=== PATIENT | female | born 1950 | race Caucasian/White ===

== ENCOUNTER 2020-07-20 12:26 | Outpatient (CLI) | payer MEDICARE, SELFPAY | END 2020-07-20 12:27 | disposition home or self-care (01) | LOC: ANHAUDIO 12:33 | PROVIDERS: PCP Physician Assistant; Visit Provider Physician Assistant | DX: H90.3 Sensorineural hearing loss, bilateral (principal) | CPT/HCPCS: 92557; 92567 ==

== ENCOUNTER 2020-09-13 17:24 | Emergency (ER) | payer MEDICARE, SELFPAY ==
[2020-09-13 17:42] VITALS: BP 174/81; PULSE 79; RESP 18; TEMP 36.7; O2SAT 98
--- NOTE | 2020-09-13 18:00 | PC.NURSE ---
Pt up to desk, reports that she feels foolish for coming in, and that she's going to go home as soon as her daughter gets here. States I don't think there's anything wrong except I'm dirty . Explained that we would be happy to see her. Also discussed signs of circulation problems, and what to watch for. Pt given education on cap refill and how to check her nailbeds. Pt also continues to deny paresthesias or temperature change to areas. Pt states will come back if worse. Amb to exit with cane.
== END 2020-09-13 18:00 | disposition left against medical advice (07) ==
LOC: ANHED 09-14 09:45
DX: Z53.21 Procedure and treatment not carried out due to patient leaving prior to being seen by health care provider (principal)
CPT/HCPCS: 99199

== ENCOUNTER 2020-09-27 10:50 | Outpatient (NON) | payer MEDICARE, SELFPAY ==
[2020-09-28 21:14] LABS: SARS-CoV-2 RNA PCR Negative
== END 2020-09-27 10:51 ==
LOC: ANHCOVIDDT 10:52
PROVIDERS: Visit Provider Physician Assistant
DX: R68.89 Other general symptoms and signs (principal); Z20.828 Contact with and (suspected) exposure to other viral communicable diseases
CPT/HCPCS: 87635; C9803; U0003

== ENCOUNTER 2021-04-12 14:53 | Emergency (ER) | payer MEDICARE, SELFPAY ==
--- NOTE | ~2021-04-12 | CT_ITS ---
EXAMINATION: CT brain wo con DATE: 04/12/2021 17:40 INDICATION: Headache due to hyperglycemia. Dizziness. Shaking. TECHNIQUE: Computed tomography (CT) of the head was performed without intravenous contrast. Sagittal and coronal reconstructions were performed. The mA was adjusted according to patient size. Iterative reconstruction technique was employed. The dose-length product was 605.33 mGy-cm. COMPARISON: head CT dated 10/25/2007 FINDINGS: Postoperative change of prior right frontal craniotomy with plate and screw fixations and aneurysm cl ipping in the region of the right middle cerebral artery. Old lacunar infarct at the head of the righ t caudate nucleus and anterior limb of the right internal capsule. A second small old lacunar infarct at the inferior right lentiform nucleus. No acute intracranial hemorrhage, acute infarction or abnor mal extra axial fluid collection. There is mild scattered white matter hypoattenuation consistent wit h chronic small vessel ischemic disease. Ventricles are normal and symmetric. No mass/mass effect. C hanges of bilateral intraocular lens replacement. The orbits, paranasal sinuses and mastoid air cells are normal. Intracranial calcified cerebral atherosclerosis is noted. IMPRESSION: 1. No acute intracranial process. 2. Small old lacunar infarcts at the right basal ganglia. 3. Postoperative change of prior right frontal craniotomy and aneurysm clipping in the right suprasel lar region likely of the right middle cerebral artery. Correlate with surgical history. 4. Mild scattered periventricular predominant white matter hypoattenuation consistent with chronic sm all vessel ischemic disease. Reviewed, dictated and finalized at location A. IMPRESSION: 1. No acute intracranial process. 2. Small old lacunar infarcts at the right basal ganglia. 3. Postoperative change of prior right frontal craniotomy and aneurysm clipping in the right suprasellar region likely of the right middle cerebral artery. Co rrelate with surgical history. 4. Mild scattered periventricular predominant white matter hypoattenuation cons istent with chronic small vessel ischemic disease.
--- NOTE | ~2021-04-12 | XR_ITS ---
EXAMINATION: XR chest 2V DATE: 04/12/2021 15:24 INDICATION: Weakness. TECHNIQUE: Frontal and lateral views of the chest were obtained. COMPARISON: Chest 2 views 10/10/15 FINDINGS: There is mild atelectasis versus scarring in the lower lung zones. No pleural effusion or p neumothorax. The heart size is normal. Median sternotomy wires are noted. Surgical clips in the right upper quadrant are likely from cholecystectomy. IMPRESSION: 1. Mild atelectasis versus scarring in the lower lung zones. Reviewed, dictated and finalized at location A.
[2021-04-12 14:55] VITALS: BP 177/53; PULSE 93; RESP 16; TEMP 36.7; O2SAT 97
--- NOTE | 2021-04-12 15:00 | ECG_ITS ---
Measurements Intervals [place] Rate: 88 P: -7 MD: 180 QRS: 53 QRSD: 91 T: 48 QT: 395 QTc: 479 Interpretive Statements SINUS RHYTHM BORDERLINE ST-T WAVE ABNORMALITY- HIGH LATERAL LEADS BASELINE ARTIFACT- I, III, AVL BORDERLINE ECG Electronically Signed On 04-12-2021 15:16:06 CDT by Gavin Ca D.O.
[2021-04-12 15:08] LABS: Glucose Point of Care > 500 mg/dl (65-105)
[2021-04-12 15:19] LABS: Basophils Percent Auto 0.3 % (0.2-1.2); Eosinophils Absolute Auto 0.3 K/mm3 (0-0.3); Eosinophils Percent Auto 4.1 % (0-4.4); Hematocrit 38.9 % (37.0-47.0); Hemoglobin 13.1 g/dL (12.0-15.0); Immature Granulocyte Absolute 0.02 K/mm3 (0.00-0.031); Immature Granulocyte Percent A 0.3 % (0-0.5); Immature Platelet Fraction Pct 4.5 % (0.9-11.2); Lymphocytes Absolute Auto 1.37 K/mm3 (0.9-3.2); Lymphocytes Percent Auto 22.4 % (18.3-44.2); Mean Corpuscular HGB Conc 33.7 g/dl (32-36); Mean Corpuscular Hemoglobin 33.8 pg (26-34); Mean Corpuscular Volume 100.3 fl (80-100); Mean Platelet Volume 11.4 fl (7.4-10.4); Monocytes Absolute Auto 0.6 K/mm3 (0.1-0.6); Monocytes Percent Auto 10.1 % (2.6-8.5); Neutrophils Absolute Auto 3.8 K/mm3 (1.3-6.7); Neutrophils Percent Auto 62.8 % (45.5-73.1); Platelet Count Result 111 k/mm3 (150-375); Red Blood Count 3.88 M/mm3 (4.2-5.4); Red Cell Distribution Width 13.9 % (11.5-14.5); White Blood Count 6.1 K/mm3 (4.5-10.0)
[2021-04-12 15:24] LABS: Lactic Acid Reflex 3.2 mmol/L (0.7-2.1)
[2021-04-12 15:30] LABS: Beta-Hydroxybutyrate/Acetoacetate 0.11 mmol/L (0.02-0.27)
[2021-04-12 15:39] LABS: Alanine Aminotransferase 26 U/L (4-35); Albumin Level 3.1 g/dL (3.5-5.1); Alkaline Phosphatase 276 U/L (38-126); Anion Gap 11 mmol/L (8-16); Aspartate Amino Transferase 57 U/L (14-36); Bilirubin,Total 2.3 mg/dL (0.2-1.3); Blood Urea Nitrogen 7 mg/dL (7-17); Calcium 8.9 mg/dL (8.4-10.2); Carbon Dioxide 20 mmol/L (22-30); Chloride 101 mmol/L (98-107); Estimated CRCL calculation 78 ml/min; Estimated Glomerular Filt Rate > 60; Glucose 584 mg/dL (65-105); Potassium 4.2 mmol/L (3.4-5.0); Sodium 132 mmol/L (137-145)
[2021-04-12 16:00] VITALS: BP 155/53; PULSE 80; RESP 18; O2SAT 98
[2021-04-12 16:07] LABS: Add Urine Microscopic? YES; Appearance Urine Clear (Clear); Bilirubin Urine Negative (Negative); Blood Urine Negative (Negative); Color Urine Yellow (Yellow); Glucose Urine UA 3+ mg/dL (Negative); Ketones Urine Negative (Negative); Leukocyte Esterase Ur Negative LEU/UL (Negative); Nitrate Urine Negative (Negative); Protein Urine Negative (Negative); RBC Urine 0-2 /hpf (0-2); Squamous Epithelial Cell Urine Few /hpf (Few); Urobilinogen Urine Negative mg/dL (<2.0)
[2021-04-12 16:22] LABS: Specific Grav Ur 1.032 (1.001-1.035)
[2021-04-12 16:43] LABS: Base Excess ABG 1.5 mEq/l (+/-2.0); Carboxyhemoglobin 0.5 % THb (0-2.0); Fractional Inspired Oxygen 21 %; Methemoglobin ABG 0.2 %THb (0-1.5); Oxygen Content ABG 18.4 %vol (16.0-22.0); Oxyhemoglobin 97.8 % THb (90.0-100.0); PCO2 ABG 24.3 mmHg (35.0-45.0); PO2 ABG 129.2 mmHg (80.0-100.0); PO2 FiO2 Ratio Arterial Blood 6.15 %; Reduced Hemoglobin 1.5 %THb (0-5.0); Total Hemoglobin 13.2 g/dL (12.0-18.0)
[2021-04-12 16:44] LABS: Device ROOM AIR; Modified Allen's Test Pass; Site Drawn LEFT RADIAL; pH ABG 7.574 (7.350-7.450)
[2021-04-12] MEDS: SODIUM CHLORIDE 0.9% IV 1,000 ML 999 ML IV CONT ×2 (16:48→18:05)
[2021-04-12 17:00] VITALS: BP 130/49; PULSE 76; RESP 12; O2SAT 97
--- NOTE | 2021-04-12 17:21 | ED.GENADULT ---
HPI - General Adult General Chief complaint: Recheck/Abnormal Lab/Rx Stated complaint: high bs Time Seen by Provider: 04/12/21 16:18 Source: patient, family and RN notes reviewed Mode of arrival: ambulatory Limitations: no limitations History of Present Illness HPI narrative: Patient is a 70-year-old female who presents to emergency department for evaluation of hyperglycemia fatigue that has been present for the last month patient notes that she has not been taking her insulin for the last month. Patient has insulin at the pharmacy waiting for her but is neglected to pick it up. Patient was seen by primary care doctor today who referred her to the emergency department. Patient presents with her daughter. Patient lives by herself in a correction [facility] apartment setting. Patient notes that she has had some intermittent vomiting. Patient notes mild headache upon arrival which she has had for 1 month. Patient denies illness or other complaints and does not appear distressed upon arrival Related Data Home Medications Medication Instructions Recorded Confirmed insulin glargine [Basaglar KwikPen SUBCUT 04/12/21 U-100 Insulin] nateglinide mg 04/12/21 sertraline mg 04/12/21 Allergies Allergy/AdvReac Type Severity Reaction Status Date / Time metformin AdvReac Unknown Diarrhea Verified 04/12/21 16:47 Review of Systems Review of Systems: All systems reviewed & are unremarkable except as noted in HPI and below PMFSH Past Medical History Medical History (Updated 04/12/21 @ 20:27 by Zechariah Valerio PA-C) Brain aneurysm Diabetes mellitus Hypertension Obesity Surgical History Surgical History (Updated 04/12/21 @ 17:23 by Zechariah Valerio PA-C) Hx of brain surgery Family History Family History Father Patient's father is Mother Family history of Alzheimer's disease Mother Family history of malignant neoplasm of cervix Father Family history of emphysema, Onset Age: 50 Social History Social History Smoking status: Never smoker Second hand tobacco smoke exposure: No Smoking end date: 11/04/07 Alcohol intake: never Gender identity (if verbalized by the patient): Female Exam Narrative: Exam Narrative: GENERAL: Well-appearing, well-nourished, and in no acute distress. HEAD: Normocephalic, atraumatic. EYES: PERRLA and EOMI. ENT: Nares clear, no rhinorrhea or epistaxis. Mucous membranes moist. CHEST: Clear to auscultation. No respiratory distress. No wheezes rales or rhonchi HEART: Regular rate and rhythm. No murmur heard. Normal peripheral pulses. ABDOMEN: Soft, nontender, nondistended EXTREMITIES: Normal range of motion. No edema. SKIN: Warm, dry, no rash. NEURO: No focal deficits. Alert and oriented x3. PSYCH: Normal mood and affect. Course Course Emergency Course: Patient was evaluated for not feeling well in the emergency department has been noncompliant with her diabetic medications was likely dehydrated has had marked improvement with her lactic going down and her glucose is well she feels much better at this time will be discharged home agreeing to be compliant with her medications and will follow with primary care ABCs and vital signs intact and stable at this time Vital Signs Vital signs: Vital Signs Temperature 98.1 F 04/12/21 14:55 Pulse Rate 93 04/12/21 14:55 Respiratory Rate 16 04/12/21 14:55 Blood Pressure 177/53 H 04/12/21 14:55 Pulse Oximetry 97 04/12/21 14:55 Temperature 98.1 F 04/12/21 14:55 Pulse Rate 88 04/12/21 19:30 Respiratory Rate 16 04/12/21 19:30 Blood Pressure 144/91 H 04/12/21 19:30 Pulse Oximetry 100 04/12/21 19:30 Medical Decision Making MDM Narrative Medical decision making narrative: Patient in the room in no distress aware of case findings treatment plan and diagnosis a
[2021-04-12] MEDS: INSULIN HUMAN REGULAR (*BKC) 100 UNITS/ML 10 UNITS SUB-Q (18:05)
[2021-04-12 18:12] LABS: Reflex Lactic Acid Yes or No Add Lactic
[2021-04-12 19:14] LABS: Glucose Point of Care 186 mg/dl (65-105)
[2021-04-12 19:30] VITALS: BP 144/91; PULSE 88; RESP 16; O2SAT 100
[2021-04-12 19:52] LABS: Lactic Acid 2.9 mmol/L (0.7-2.1)
[2021-04-12 20:40] VITALS: BP 145/71; PULSE 79; RESP 16; O2SAT 97
== END 2021-04-12 20:48 | disposition home or self-care (01) ==
PROVIDERS: Emergency Medicine Emergency Medical Services; Emergency Provider Emergency Medicine; PCP Family Medicine
DX: E11.65 Type 2 diabetes mellitus with hyperglycemia (principal); I10 Essential (primary) hypertension; E66.9 Obesity, unspecified; Z68.33 Body mass index [BMI] 33.0-33.9, adult; Z79.4 Long term (current) use of insulin; Z91.14 Patient's other noncompliance with medication regimen; R94.31 Abnormal electrocardiogram [ECG] [EKG]
CPT/HCPCS: 36415; 36600; 70450; 71046; 80053; 81001; 82010; 82375; 82805; 82948; 83050; 83605; 85025; 85055; 93005; 96360; 96361; 99284; J1815; J7030

== ENCOUNTER 2021-05-11 14:12 | Outpatient (CLI) | payer MEDICARE, SELFPAY ==
--- NOTE | 2021-05-11 | ECHO_ITS ---
Patient Info Name: Nayely Martin Age: 70 years : 1950 Gender: Female Ht: 64 in Wt: 200 lbs BSA: 2.06 m2 HR: 73 bpm BP: 144 / 67 mmHg Heart Rhythm: Sinus Rhythm Exam Date: 05/11/2021 2:37 PM Exam Location: [facility] Pulmonary Patient Status: Outpatient Admit Date: 05/11/2021 Staff Ordering Physician: Jaun, Elisa DIAZ Cold Roll Operator: CASE Attending Provider: Jaun, Elisa DIAZ Referring Physician: Jaun SAXENA; Exam Type: CA echo doppler color flow Study Info Indications R06.9 - Unspecified abnormalities of breathing Complete two-dimensional, color flow and Doppler transthoracic echocardiogram is performed. Summary 1. Complete two-dimensional, color flow and Doppler transthoracic echocardiogram is performed. 2. Normal left ventricular size with mild concentric hypertrophy. Good systolic function of all segments with an ejection fraction greater than 70% and no wall motion abnormalities. Grade 2 diastolic dysfunction is present. 3. Left atrial chamber dimension is mildly enlarged. 4. There is mild to moderate aortic valve stenosis with a peak velocity of 233 cm/s, mean gradient of 13 mmHg, and aortic valve area of 1.0 cm2. Left Ventricle Left ventricular chamber dimension is normal. Left ventricular systolic function is normal, estimated at >70%. There is mildly increased left ventricular wall thickness. Left ventricular septal wall motion is normal. The left ventricular diastolic function is grade II diastolic dysfunction. Right Ventricle Right ventricular chamber dimension is normal. Right ventricular systolic function is normal. Left Atria Left atrial chamber dimension is mildly enlarged. Right Atria Right atrial chamber dimension is normal. Aortic Valve The aortic valve is trileaflet. There is no aortic valve sclerosis. There is mild to moderate aortic valve stenosis with a peak velocity of 233 cm/s, mean gradient of 13 mmHg, and aortic valve area of 1.0 cm2. There is no aortic valve regurgitation. There is mild aortic valve calcification. Pulmonic Valve The pulmonic valve is normal. There is no pulmonic valve stenosis. There is no pulmonic regurgitation. Mitral Valve The mitral valve has normal leaflets. There is no mitral valve stenosis. There is trace mitral valve regurgitation. Tricuspid Valve The tricuspid valve leaflets are normal. There is no significant tricuspid valve stenosis. There is trace tricuspid valve regurgitation. No pulmonary hypertension, estimated pulmonary arterial systolic pressure is Empty. Pericardium/Pleural The pericardium appears normal. There is no pericardial effusion. Inferior Vena Cava Normal inferior vena cava with >50% collapse upon inspiration consistent with Empty right atrial pressure, Empty. Aorta The aortic root size at the sinus of Valsalva is normal. The prox ascending aorta size is normal. Left Ventricular Outflow Tract Name Value Normal LVOT 2D LVOT Diameter 1.6 cm LVOT Doppler LVOT Peak Gradient 5 mmHg LVOT Mean Gradient 3 mmHg LVOT VTI
== END 2021-05-11 14:13 | disposition home or self-care (01) ==
PROVIDERS: PCP Family Medicine; Visit Provider Physician Assistant
DX: R06.09 Other forms of dyspnea (principal)
CPT/HCPCS: 93306

== ENCOUNTER 2022-03-13 16:25 | Inpatient (IN) | payer MEDICARE, SELFPAY ==
--- NOTE | ~2022-03-13 | CT_ITS ---
EXAMINATION: CT abdomen pelvis w con DATE: 03/13/2022 18:54 INDICATION: ams, elevated lfts TECHNIQUE: Computed tomography (CT) of the abdomen and pelvis was performed with 100 mL Omnipaque-300 intravenous contrast. Automated exposure control and iterative reconstruction technique were employe d. The dose-length product was 1237.82 mGy-cm. COMPARISON: 07/05/2011. FINDINGS: Motion limited examination. Lower thorax: Stable right lower lobe pulmonary nodule, benign and requires no follow-up. Stable biba silar scarring and pleural blebs. Liver: Liver is small with a nodular border. Severely narrowed main and left and right portal veins, poorly visualized within the liver, without evident thrombus. Biliary/Gallbladder: Gallbladder is absent. No bile duct dilation. Spleen: Normal. Pancreas: No mass or duct dilation. Atrophy. Adrenals:No mass. Kidneys: No mass, stone, or hydronephrosis. GI tract: No small or large bowel dilation. Appendix not visualized. Mesentery/Peritoneum: No ascites, mass, or free air. Multiple upper abdominal varices. Retroperitoneum: No mass. Pelvis: Uterus absent. Mild bladder wall thickening. Soft Tissues: Soft tissues and body wall unremarkable. Bones: No acute osseous finding. IMPRESSION: Cirrhosis with portal hypertension. Poorly visualized significantly narrowed portal veins and chronic thrombosis/decreased flow. Bladder wall thickening as can be seen with cystitis in the appropriate c linical context. Reviewed, dictated and finalized at location K. IMPRESSION: Cirrhosis with portal hypertension. Poorly visualized significantly narrowed po rtal veins and chronic thrombosis/decreased flow. Bladder wall thickening as ca n be seen with cystitis in the appropriate clinical context.
--- NOTE | ~2022-03-13 | XR_ITS ---
XR chest 2V DATE: 03/13/2022 17:09 INDICATION: Weakness TECHNIQUE: AP and lateral views COMPARISON: 04/22/2021 AP and lateral chest FINDINGS: There is chronic discoid scarring at the middle lobe. The lungs are otherwise clear of inf iltrate or consolidation. No pulmonary vascular congestion or pleural effusion or pneumothorax. Normal heart size. Aortic calcification. Diffuse osteopenia. Status post cholecystectomy. IMPRESSION: Reviewed, dictated and finalized at location B. IMPRESSION:
--- NOTE | ~2022-03-13 | CT_ITS ---
EXAMINATION: CT brain wo con DATE: 03/13/2022 17:02 INDICATION: Altered mental state. Dizziness. Weakness. TECHNIQUE: Computed tomography (CT) of the head was performed without intravenous contrast. The mA wa s adjusted according to patient size. Iterative reconstruction technique was employed. Exam dose: 60 5.33 mGy-cm total exam DLP. COMPARISON: 04/22/2021 CT brain FINDINGS: Right supraclinoid aneurysm surgical clips. Right frontotemporal parietal bone flap is secu red in place by plates and screws. Chronic right f cerebrovascular accident at the right caudate nucleus and anterior limb of right inte rnal capsule and smaller right chronic basal ganglia lacunar infarct. There is nonspecific diminished attenuation cerebral white matter, likely due to chronic small vessel ischemic changes. There are prominent bilateral carotid siphon internal carotid artery calcification s. No intracranial mass lesion or hemorrhage or recent cerebrovascular accident is evident. No midline s hift or mass effect. No subdural or epidural hematoma. No fracture or bone destruction of the cranial vault. The mastoid air cells and included paranasal sinuses are normally developed and aerated.. IMPRESSION: Chronic old right cerebrovascular accidents Cerebral atherosclerosis and chronic small vessel ischemic changes of the cerebral white matter Status post right surgical aneurysm repair No acute intracranial finding or significant change since 04/22/2021 Reviewed, dictated and finalized at Location A. Reviewed, dictated and finalized at location B. IMPRESSION: Chronic old right cerebrovascular accidents Cerebral atherosclerosis and chronic small vessel ischemic changes of the cereb ral white matter Status post right surgical aneurysm repair No acute intracranial finding or significant change since 04/22/2021
--- NOTE | 2022-03-13 16:35 | ECG_ITS ---
Measurements Intervals [place] Rate: 78 P: 30 MI: 175 QRS: 66 QRSD: 88 T: 57 QT: 427 QTc: 486 Interpretive Statements SINUS RHYTHM NONSPECIFIC T-WAVE ABNORMALITY- ANTERIOR LEADS BORDERLINE ECG Electronically Signed On 03-13-2022 17:02:58 CDT by Gavin Ca D.O.
[2022-03-13 16:36] VITALS: BP 106/42; PULSE 81; RESP 20; TEMP 36.9; O2SAT 100
--- NOTE | 2022-03-13 16:46 | ED.AMS ---
HPI - Altered Mental Status General Chief Complaint: Altered Mental Status Stated Complaint: AMS Time Seen by Provider: 03/13/22 16:34 Source: patient, family and EMS History of Present Illness HPI narrative: Patient brought in for altered mental status. Patient is alert and oriented x4 however the family notes she is not acting like her usual self. She thinks her daughter is living with her has not been the case for approximately 10 years. Patient also reports multiple falls over the past several days EMS evaluated her twice today once for a left assist. Patient unable to give clear details regarding the falls. Patient reports she has pain around her bottom side where she has fallen she denies any chest pain shortness of breath fevers chills nausea vomiting headaches focal numbness or weakness. Related Data Allergies Allergy/AdvReac Type Severity Reaction Status Date / Time metformin AdvReac Unknown Diarrhea Verified 03/13/22 21:17 Review of Systems Review of Systems: CONSTITUTIONAL: Denies fever, chills, or sweats. EYES: Denies visual changes, redness, or discharge. ENT: Denies rhinorrhea, congestion, sore throat, or otalgia. CARDIOVASCULAR: Denies chest pain, palpitations, or edema. RESPIRATORY: Denies cough or dyspnea. GASTROINTESTINAL: Denies abdominal pain, nausea, vomiting, or diarrhea. GENITOURINARY: Denies dysuria or hematuria. SKIN: Denies rash or itching. MUSCULOSKELETAL: Denies back pain, joint pain, or myalgia. NEUROLOGIC: Denies headache, numbness, dizziness, or weakness. PSYCHIATRIC: Denies anxiety or depression. 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) Benign essential HTN Brain aneurysm CAD (coronary artery disease) Diabetes mellitus Hypertension MDD (major depressive disorder), recurrent episode Obesity Uncontrolled diabetes mellitus Surgical History Surgical History History of appendectomy Hx of brain surgery Hx of hysterectomy S/P CABG x 3 S/P cholecystectomy Family History Family History Father Patient's father is Mother Family history of Alzheimer's disease Mother Family history of malignant neoplasm of cervix Father Family history of emphysema, Onset Age: 50 Social History Social History Social History: Smoking packs per day: 0.5 Smoking cigarettes per day: 10.0 Years smoked: 30 Smoking pack-years: 15.00 Smoking status: Former smoker Tobacco type: cigarettes Second hand tobacco smoke exposure: No Smoking end date: 11/04/07 Alcohol intake: never Substance use: never Substance use type: does not use Gender identity (if verbalized by the patient): Female Sexual Orientation (if Verbalized by the Patient): Straight or Heterosexual Spiritual care concerns: No Exam Narrative: GENERAL: Well-appearing, well-nourished, and in no acute distress. HEAD: Normocephalic, atraumatic. EYES: PERRLA and EOMI. ENT: Nares clear, no rhinorrhea or epistaxis. Mucous membranes moist. NECK: Supple. No masses. No JVD CHEST: Clear to auscultation. No respiratory distress. No wheezes rales or rhonchi HEART: Regular rate and rhythm. No murmur heard. Normal peripheral pulses. ABDOMEN: Soft, nontender, nondistended, normal active bowel sounds. EXTREMITIES: Normal range of motion. No edema. SKIN: Warm, dry, no rash. NEURO: 5 out of 5 strength in all extremities sensation intact to light touch in all extremities cranial nerves II through XII are intact. Alert and oriented x3. PSYCH: Normal mood and affect. Course Reevaluation(s) Reevaluation #1: Family patient updated on res
[2022-03-13] MEDS: SODIUM CHLORIDE 0.9% IV 1,000 ML 999 ML IV CONT (16:52)
--- NOTE | 2022-03-13 16:54 | PC.NURSE ---
Pt to XRAY via stretcher at this time, fluids infusing.
[2022-03-13 17:02] LABS: Basophils Percent Auto 0.2 % (0.2-1.2); Eosinophils Percent Auto 0.2 % (0-4.4); Hematocrit 36.8 % (37.0-47.0); Immature Granulocyte Absolute 0.06 K/mm3 (0.00-0.031); Immature Granulocyte Percent A 0.5 % (0-0.5); Immature Platelet Fraction Pct 4.8 % (0.9-11.2); Lymphocytes Absolute Auto 0.75 K/mm3 (0.9-3.2); Lymphocytes Percent Auto 5.7 % (18.3-44.2); Mean Corpuscular HGB Conc 32.6 g/dl (32-36); Mean Corpuscular Hemoglobin 33.1 pg (26-34); Mean Corpuscular Volume 101.4 fl (80-100); Mean Platelet Volume 11.3 fl (7.4-10.4); Monocytes Absolute Auto 0.9 K/mm3 (0.1-0.6); Monocytes Percent Auto 6.7 % (2.6-8.5); Neutrophils Absolute Auto 11.3 K/mm3 (1.3-6.7); Neutrophils Percent Auto 86.7 % (45.5-73.1); Platelet Count Result 85 k/mm3 (150-375); Red Blood Count 3.63 M/mm3 (4.2-5.4); Red Cell Distribution Width 14.3 % (11.5-14.5); White Blood Count 13.1 K/mm3 (4.5-10.0)
[2022-03-13 17:09] LABS: Glucose Point of Care 134 mg/dl (65-105)
[2022-03-13 17:11] LABS: INR 1.7; Partial Thromboplastin Time 35.1 SECONDS (22.3-36.8)
[2022-03-13 17:14] LABS: Appearance Urine Clear (Clear); Bilirubin Urine 1+ (Negative); Blood Urine 3+ (Negative); Color Urine Yellow (Yellow); Glucose Urine UA Negative (Negative); Ketones Urine Trace mg/dL (Negative); Leukocyte Esterase Ur Negative LEU/UL (Negative); Nitrate Urine Negative (Negative); Protein Urine 1+ mg/dL (Negative); Specific Grav Ur 1.025 (1.001-1.035); Urobilinogen Urine 0.2 mg/dL (<2.0); pH Urine 5.5 (5.0-9.0)
[2022-03-13 17:15] LABS: Lactic Acid Reflex 2.8 mmol/L (0.7-2.0)
[2022-03-13 17:18] LABS: Albumin Level 2.7 g/dL (3.5-5.1); Alkaline Phosphatase 153 U/L (38-126); Anion Gap 6 mmol/L (8-16); Bilirubin,Total 3.5 mg/dL (0.2-1.3); Blood Urea Nitrogen 21 mg/dL (7-17); Calcium 8.2 mg/dL (8.4-10.2); Carbon Dioxide 24 mmol/L (22-30); Chloride 108 mmol/L (98-107); Estimated CRCL calculation 59 ml/min; Estimated Glomerular Filt Rate > 60; Glucose 125 mg/dL (65-110); Potassium 4.7 mmol/L (3.4-5.0); Sodium 138 mmol/L (137-145)
[2022-03-13 17:26] LABS: Alanine Aminotransferase 135 U/L (6-35); Aspartate Amino Transferase 682 U/L (14-36)
[2022-03-13 17:33] LABS: Add Urine Microscopic? YES
[2022-03-13 17:35] LABS: Mucus Urine Rare /lpf; RBC Urine 0-2 /hpf (0-2); Squamous Epithelial Cell Urine Rare /hpf (Few); WBC Urine 0-3 /hpf
[2022-03-13 17:41] VITALS: BP 97/59; PULSE 86; RESP 15; O2SAT 96
[2022-03-13 18:34] LABS: SARS-CoV-2 RNA PCR Negative
[2022-03-13 19:08] VITALS: BP 80/49; PULSE 90; RESP 18; O2SAT 98
--- NOTE | 2022-03-13 19:08 | PC.NURSE ---
This RN started NS infusing at 999MLS/HR due to hypotensive. Pt moved to room 11. Pt on tele monitor.
[2022-03-13] MEDS: SODIUM CHLORIDE 0.9% IV 1,000 ML 125 ML IV CONT ×2 (19:09→20:25)
[2022-03-13 19:13] LABS: Ammonia 15 umol/L (9-30); Ethanol < 10 mg/dL (<10)
[2022-03-13 19:19] LABS: Beta-Hydroxybutyrate/Acetoacetate 0.82 mmol/L (0.02-0.27)
[2022-03-13 19:21] VITALS: BP 93/51; PULSE 90; RESP 15; O2SAT 100
--- NOTE | 2022-03-13 19:21 | PC.NURSE ---
bedside report given to Hiwot RN at this time. Pt is alert on stretcher, family at bedside, discussed POC.
--- NOTE | 2022-03-13 19:26 | PC.NURSE ---
ROBERTOR from Rosemarie FERNANDEZ.
[2022-03-13 19:46] VITALS: BP 112/51; PULSE 88; RESP 16; O2SAT 97
[2022-03-13 19:58] LABS: Reflex Lactic Acid Yes or No Add Lactic
[2022-03-13 20:24] LABS: Creatine Kinase > 16000 U/L (30-135)
[2022-03-13 20:40] VITALS: BP 136/45; PULSE 89; RESP 20; TEMP 36; O2SAT 99; BMI 34.9
--- NOTE | 2022-03-13 20:52 | ADMGEN ---
This patient, Nayely Vega, was admitted to [facility] Surg Room 323-02. Patient/family oriented to hospital policies and general routines including ID bracelet, bed and alarms, visiting hours, pain management, procedures, bathroom and other care routines, personal items, smoking policy, room service/diet, and visiting hours. Information on how to activate the Rapid Response Team has been discussed. Patient/Family are encouraged to report perceived risks to care and to ask questions if they do not understand what they are told or what they should do.
[2022-03-13 20:57] LABS: Lactic Acid 1.9 mmol/L (0.7-2.0)
--- NOTE | 2022-03-13 21:02 | PM.IMHP ---
H&P: HPI History of Present Illness Date/Time: Patient was placed observation status for expected length of stay less than 23 hours for management, will plan to re-evaluate tomorrow for improvement. 03/13/22 21:02 Chief Complaint: Altered mental status Narrative: Ms. Vega is a 71-year-old female who presented to the emergency room after being found on the floor on the floor of her bathroom today. Patient's daughter is at bedside states last time anybody had spoke with the patient was on Saturday when she had fallen in the lobby. Patient states they attempted to check on her yesterday but they did not get an answer and today she was found on the bathroom floor. Patient states she does not recall exactly when she did fall. Patient denies any lightheadedness, dizziness, syncopal, or near syncopal episodes. Patient states she does not even recall falling in the bathroom. At this time patient is alert oriented to person and place and is confused to time. Upon evaluation in emergency room patient was noted to have significantly elevated liver enzymes. Patient's daughter states that they have been elevated in the past she had seen hepatology, but no etiology was found. Patient's daughter states that these liver enzymes the highest they have ever been. Patient does have a known history of coronary artery disease status post coronary bypass grafting, cerebral aneurysm status post clipping, diabetes mellitus, hypertension, depression, transaminitis and CVA. Review of Systems Review of Systems: A 12 point review of systems was completed patient all pertinent positive and negative per HPI the remainder are unremarkable. 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) Benign essential HTN Brain aneurysm CAD (coronary artery disease) Diabetes mellitus Hypertension MDD (major depressive disorder), recurrent episode Obesity Uncontrolled diabetes mellitus Surgical History Surgical History History of appendectomy Hx of brain surgery Hx of hysterectomy S/P CABG x 3 S/P cholecystectomy Family History Family History Father Patient's father is Mother Family history of Alzheimer's disease Mother Family history of malignant neoplasm of cervix Father Family history of emphysema, Onset Age: 50 Social History Social History Social History: Smoking status: Former smoker Tobacco type: cigarettes Second hand tobacco smoke exposure: No Smoking end date: 11/04/07 Alcohol intake: never Substance use: never Substance use type: does not use Gender identity (if verbalized by the patient): Female Sexual Orientation (if Verbalized by the Patient): Straight or Heterosexual Meds Home Medications and Allergies Home Medications Medication Instructions Recorded Confirmed Type atorvastatin 10 mg tablet 10 mg PO DAILY #90 tablet 01/05/22 02/27/22 Rx lisinopril 5 mg tablet 5 mg PO BID #180 tablet 01/05/22 02/27/22 Rx sertraline 50 mg tablet 50 mg PO DAILY #90 tablet 01/05/22 02/27/22 Rx insulin syr/ndl U100 half umu 0.3 #100 ea 01/12/22 02/27/22 Rx mL 31 gauge x 16 insulin syringe-needle U-100 1 mL #100 ea 01/12/22 02/27/22 Rx 31 gauge x 5/16 insulin aspart U-100 100 unit/mL See Rx Instructions .ROUTE 02/26/22 02/27/22 Rx (3 mL) subcutaneous pen .COMPLEX #15 ml amoxicillin 875 mg-potassium 1 tablet PO BID #20 tablet 02/27/22 02/27/22 Rx clavulanate 125 mg tablet Allergies Allergy/AdvReac Type Severity Reaction Status Date / Time metformin AdvReac Unknown Diarrhea Verified 03/13/22 16:42 Vital Signs Vital Signs - 24 hr 03/13/22 16:36 03/13/22 17:41 03/13/22 19:08 Temperature
[2022-03-13 23:02] LABS: Glucose Point of Care 107 mg/dl (65-105)
[2022-03-14 05:53] VITALS: BP 110/46; PULSE 71; RESP 16; TEMP 36.6; O2SAT 95
[2022-03-14] MEDS: SODIUM CHLORIDE 0.9% IV 1,000 ML 125 ML IV CONT ×2 (06:18→16:52)
[2022-03-14 06:37] LABS: Basophils Percent Auto 0.3 % (0.2-1.2); Eosinophils Absolute Auto 0.3 K/mm3 (0-0.3); Hemoglobin 9.8 g/dL (12.0-15.0); Immature Granulocyte Absolute 0.05 K/mm3 (0.00-0.031); Immature Granulocyte Percent A 0.4 % (0-0.5); Lymphocytes Percent Auto 11.1 % (18.3-44.2); Mean Corpuscular HGB Conc 31.6 g/dl (32-36); Mean Corpuscular Volume 104.4 fl (80-100); Mean Platelet Volume 11.8 fl (7.4-10.4); Monocytes Absolute Auto 1.3 K/mm3 (0.1-0.6); Neutrophils Absolute Auto 9.6 K/mm3 (1.3-6.7); Neutrophils Percent Auto 76.2 % (45.5-73.1); Platelet Count Result 74 k/mm3 (150-375); Red Blood Count 2.97 M/mm3 (4.2-5.4); Red Cell Distribution Width 14.2 % (11.5-14.5); White Blood Count 12.6 K/mm3 (4.5-10.0)
--- NOTE | 2022-03-14 08:09 | WPDGICN ---
Assessment and Plan Assessment and plan (1) Elevated liver enzymes: Code(s): R74.8 - Abnormal levels of other serum enzymes Status: Acute Assessment and Plan: Patient noted to have elevated LFTs. Review of old records reveal these have been elevated for some time. The chronic elevation is somewhat uncertain. Currently admitted with rhabdomyolysis electrolyte disturbance and renal insufficiency. Elevated LFTs may be on this basis acutely. Plan to obtain imaging of the liver via CT scan if not already accomplished. Hepatitis serologies in lab workup for additional evaluation of ongoing LFT elevation is advised. Patient is noted have a macrocytic anemia raising the question possible underlying scar tissue within the liver such as early cirrhosis. We will follow with you as lab work is obtained. (2) Rhabdomyolysis: Code(s): M62.82 - Rhabdomyolysis Status: Acute Assessment and Plan: Patient with electrolyte disturbance and renal insufficiency suggesting rhabdomyolysis. Renal service has been consulted. (3) Brain aneurysm: Code(s): I67.1 - Cerebral aneurysm, nonruptured Status: Acute (4) Cognitive impairment: Code(s): R41.89 - Other symptoms and signs involving cognitive functions and awareness Status: Acute (5) Hx of subarachnoid hemorrhage: Code(s): Z86.79 - Personal history of other diseases of the circulatory system Status: Acute GI Consult Note Consult date/time: 03/14/22 08:09 HPI: Nayely Vega is a 71 year old female I am asked to see for elevated LFTs. Patient has been brought to the emergency room last evening because of change in mental status. She is unable to give any additional history. States she had elevated LFTs more than 10 years ago was evaluated by [facility] elsewhere and workup apparently was negative. She it was she has been followed conservatively since that time. Patient has a history of a brain aneurysm with subsequent brain surgery and clipping of the aneurysm. Outpatient Clinic notes reflect that she has memory loss and cognitive to have deficit on this basis. This apparently is chronic and ongoing. It is on certain how much decline was noted when she was brought to the emergency room. Patient herself currently states that she has no history of exposure to hepatitis no transfusions or tattoos or IV drug abuse history. 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) Benign essential HTN Brain aneurysm CAD (coronary artery disease) Diabetes mellitus Hypertension MDD (major depressive disorder), recurrent episode Obesity Uncontrolled diabetes mellitus Surgical History Surgical History History of appendectomy Hx of brain surgery Hx of hysterectomy S/P CABG x 3 S/P cholecystectomy Family History Family History Father Patient's father is Mother Family history of Alzheimer's disease Mother Family history of malignant neoplasm of cervix Father Family history of emphysema, Onset Age: 50 Social History Social History Social History: Smoking packs per day: 0.5 Smoking cigarettes per day: 10.0 Years smoked: 30 Smoking pack-years: 15.00 Smoking status: Former smoker Tobacco type: cigarettes Second hand tobacco smoke exposure: No Smoking end date: 11/04/07 Alcohol intake: never Substance use: never Substance use type: does not use Gender identity (if verbalized by the patient): Female Sexual Orientation (if Verbalized by the Patient): Straight or Heter
[2022-03-14 08:14] LABS: Glucose Point of Care 83 mg/dl (65-105)
[2022-03-14 08:55] LABS: Bilirubin Indirect 2.4 mg/dL (0-1.1); Bilirubin,Total 3.1 mg/dL (0.2-1.3)
[2022-03-14 09:02] LABS: Creatine Kinase 13967 U/L (30-135)
[2022-03-14 12:02] LABS: Glucose Point of Care 86 mg/dl (65-105)
[2022-03-14 14:00] VITALS: BP 115/54; PULSE 83; RESP 16; TEMP 36.7; O2SAT 100
[2022-03-14 14:38] VITALS: BMI 34.9
[2022-03-14 16:34] LABS: Glucose Point of Care 116 mg/dl (65-105)
--- NOTE | 2022-03-14 16:40 | PM.IMPN ---
Progress Note: A&P Assessment and Plan (1) Acute alteration in mental status: Code(s): R41.82 - Altered mental status, unspecified Status: Acute Assessment and Plan: Patient has no neurological deficits at this time. Her ammonia level is within normal limits. Unsure if altered mental status is secondary to fall and rhabdomyolysis. At this point time will live early hydrate patient and monitor CK as well as renal function very closely. 03/14/2022 interval history: patient is 71-year-old female a resident of nursing patient apparently fell in the bathroom and was found, patient still quite confused unable to provide detailed review of symptom, her daughter is present in the room suspect patient was in the floor for overnight possibly longer, also patient fell while sitting on walker, patient is found to have significantly elevated liver function CT scan of the abdomen showed Cirrhosis with portal hypertension. Poorly visualized significantly narrowed portal veins and chronic thrombosis/decreased flow. Bladder wall thickening as can be seen with cystitis in the appropriate clinical context. patient also had macrocytic anemia suggesting liver cirrhosis etiology uncertain will do acute hepatitis panel to rule out infection and patient is seen GI and further recommendation to follow up. patient is also found to have rhabdomyolysis upon arrival CK level were elevated >16,000 most likely secondary to fall and being on the floor for overnight patient is being gently hydrated and CK levels are trending down will continue to monitor once clinically stable will have a PT OT evaluate the patient. (2) Elevated liver enzymes: Code(s): R74.8 - Abnormal levels of other serum enzymes Status: Acute Assessment and Plan: Patient has a history of elevated liver enzymes and did see hepatology in the past. Patient's daughters states that no etiology was found for her elevated liver enzymes. Gastroenterology has been consult and do appreciate further recommendations. Will avoid any hepatotoxic agents such as Tylenol. (3) Rhabdomyolysis: Code(s): M62.82 - Rhabdomyolysis Status: Acute Assessment and Plan: Patient is unsure when she fell, but it does appear since her CKs greater than 16,000 that was well over 24 hours ago. At this point time will live early hydrate patient and monitor kidney function as well as CK closely. Subjective Date/time seen: 03/14/22 16:40 Chief Complaint: Altered mental status Narrative: Ms. Vega is a 71-year-old female who presented to the emergency room after being found on the floor on the floor of her bathroom today. Patient's daughter is at bedside states last time anybody had spoke with the patient was on Saturday when she had fallen in the lobby. Patient states they attempted to check on her yesterday but they did not get an answer and today she was found on the bathroom floor. Patient states she does not recall exactly when she did fall. Patient denies any lightheadedness, dizziness, syncopal, or near syncopal episodes. Patient states she does not even recall falling in the bathroom. At this time patient is alert oriented to person and place and is confused to time. Upon evaluation in emergency room patient was noted to have significantly elevated liver enzymes. Patient's daughter states that they have been elevated in the past she had seen hepatology, but no etiology was found. Patient's daughter states that these liver enzymes the highest they have ever been. Patient does have a known history of coronary artery disease status post coronary bypass grafting, cerebral aneurysm status post clipping, diabetes mellitus, hypertension, depression, transaminitis and CVA. 03/14/2022 interval history: patient is 71-year-old female a resident of nursing patient apparently fell in the bathroom and was found, patient still quite confused unable to provide detailed review of symptom, her daughter is
[2022-03-14 19:49] LABS: Hepatitis B Surface Antigen Negative (Negative)
[2022-03-14 19:55] LABS: HAV RESULT Negative (Negative); Hepatitis B Core IgM Result Negative (Negative)
[2022-03-14 20:07] LABS: Hepatitis C Virus Antibody Negative (Negative)
[2022-03-14] MEDS: TOLNAFTATE 1% POWDER 45 GM BTL 1 APPLIC TOPICAL (20:34)
[2022-03-14 21:52] LABS: Glucose Point of Care 125 mg/dl (65-105)
[2022-03-14 22:00] VITALS: BP 118/40; PULSE 82; RESP 18; TEMP 36.2; O2SAT 97
[2022-03-15] MEDS: SODIUM CHLORIDE 0.9% IV 1,000 ML 125 ML IV CONT ×3 (05:26→21:45)
[2022-03-15 06:00] VITALS: BP 111/39; PULSE 73; RESP 16; TEMP 36.1; O2SAT 97
[2022-03-15 08:00] VITALS: PULSE 73; RESP 16; O2SAT 97
[2022-03-15 08:22] VITALS: O2SAT 97
[2022-03-15] MEDS: ENOXAPARIN 40 MG/0.4 ML SYRINGE SUB-Q (08:26)
[2022-03-15] MEDS: TOLNAFTATE 1% POWDER 45 GM BTL 1 APPLIC TOPICAL ×2 (08:26→21:44)
[2022-03-15 08:27] LABS: Glucose Point of Care 93 mg/dl (65-105)
[2022-03-15 08:55] LABS: Alanine Aminotransferase 160 U/L (6-35); Albumin Level 2.1 g/dL (3.5-5.1); Alkaline Phosphatase 124 U/L (38-126); Anion Gap 4 mmol/L (8-16); Aspartate Amino Transferase 631 U/L (14-36); Bilirubin,Total 2.1 mg/dL (0.2-1.3); Blood Urea Nitrogen 29 mg/dL (7-17); Calcium 7.2 mg/dL (8.4-10.2); Carbon Dioxide 19 mmol/L (22-30); Chloride 111 mmol/L (98-107); Estimated CRCL calculation 55 ml/min; Estimated Glomerular Filt Rate > 60; Glucose 94 mg/dL (65-110); Potassium 4.2 mmol/L (3.4-5.0); Sodium 134 mmol/L (137-145)
[2022-03-15 09:11] LABS: Creatine Kinase 7535 U/L (30-135)
[2022-03-15 12:01] LABS: Glucose Point of Care 150 mg/dl (65-105)
--- NOTE | 2022-03-15 12:54 | WPDGIPROGNO ---
Progress Note: A&P Assessment and Plan (1) Rhabdomyolysis: Code(s): M62.82 - Rhabdomyolysis Status: Acute Assessment and Plan: Patient with markedly elevated CK levels. She likely has had rhabdomyolysis. Plan to continue IV fluids. Monitor electrolytes. Elevated LFTs is most likely on this basis. (2) Elevated liver enzymes: Code(s): R74.8 - Abnormal levels of other serum enzymes Status: Acute Assessment and Plan: Patient has marked elevation of LFTs likely related to rhabdomyolysis. She does have a has a history of mild elevation of her transaminases. Laboratory studies are in progress to search for any underlying condition. Suspect she may have CORONEL. Acute elevation of LFTs hopefully will improve with rehydration , because of her recent rhabdomyolysis. (3) Acute alteration in mental status: Code(s): R41.82 - Altered mental status, unspecified Status: Acute (4) Brain aneurysm: Code(s): I67.1 - Cerebral aneurysm, nonruptured Status: Acute Assessment and Plan: Patient has a baseline cognitive impairment related to previous brain surgery and cerebral aneurysm repair. (5) Cognitive impairment: Code(s): R41.89 - Other symptoms and signs involving cognitive functions and awareness Status: Acute Subjective Date/time seen: 03/15/22 12:54 Patient still somewhat confused today but appears more alert. Reports lying on ground quite a while after fall. Now felt to have had rhabdomyolysis. Review of Systems Review of Systems: All systems reviewed & are unremarkable except as noted in HPI and below Exam Narrative: Physical exam reveals her to be more alert. Still difficult historian. Lungs are clear. Heart without murmur. Abdomen bowel sounds present soft with no organomegaly. Objective Data Vital Signs Vital Signs: Vital Signs - 24 hr 03/14/22 14:00 03/14/22 22:00 03/15/22 06:00 Temperature 98.0 F 97.1 F L 96.9 F L Pulse Rate 83 82 73 Respiratory Rate 16 18 16 Blood Pressure 115/54 L 118/40 L 111/39 L Pulse Oximetry 100 97 97 03/15/22 08:00 03/15/22 08:22 Temperature Pulse Rate 73 Respiratory Rate 16 Blood Pressure Pulse Oximetry 97 97 Intake/Output Intake/Output: Intake & Output 03/12/22 03/13/22 03/14/22 03/15/22 23:59 23:59 23:59 23:59 Intake Total 1999 4190 1240 Balance 1999 4190 1240 Meds/Results Medications: Active Medications Generic Name Dose Route Start Last Admin Trade Name Freq PRN Reason Stop Dose Admin Acetaminophen 650 mg 03/14/22 18:27 Acetaminophen 325 Mg Tablet PO Q6H PRN Mild Pain (1-3) or Fever Dextrose 12.5 gm 03/13/22 20:59 Dextrose 50% 25 Gm/50 Ml Syringe IV PUSH PRN PRN Hypoglycemia Protocol Enoxaparin Sodium 40 mg 03/14/22 09:00 03/15/22 08:26 Enoxaparin 40 Mg/0.4 Ml Syringe SUB-Q 40 mg DAILY TORIBIO Administration Glucagon 1 mg 03/13/22 20:59 Glucagon For Inj 1 Mg Vial IM PRN PRN Hypoglycemia Protocol Glucose 15 gm 03/13/22 20:59 Glucose Oral Gel 15 Gm Of Glucse In 37.5 Gm Tube PO PRN PRN Hypoglycemia Protocol Sodium Chloride 1,000 mls @ 125 mls/hr 03/13/22 18:50 03/15/22 05:26 Normal Saline Iv IV CONT 125 mls/hr .Q8H TORIBIO Administration Dextrose 1,000 mls @ 100 mls/hr 03/13/22 20:59 Dextrose 5% 1,000 Ml IVPB PRN PRN Hypoglycemia Protocol Tolnaftate 1 applic 03/14/22 21:00 03/15/22 08:26 Tolnaftate 1% Powder 45 Gm Btl TOPICAL 1 applic Q12HR TORIBIO Administration Radiology Results: ITS Impressions Head CT 03/13/22 17:03 IMPRESSION: Chronic old right cerebrovascular accidents Cerebral atherosclerosis and chronic small vessel ischemic changes of the cerebral white matter Status post right surgical aneurysm repair No acute intracranial finding or significant change since 04/22/2021 Chest X-Ray 03/13/22 17:10 IMPRESSION
--- NOTE | 2022-03-15 13:06 | PC.NURSE ---
daughter reports pt having difficulty swallowing, inquiring about bedside swallow study or speech evaluation.
[2022-03-15 14:00] VITALS: BP 129/52; PULSE 76; RESP 18; TEMP 36.6; O2SAT 99
--- NOTE | 2022-03-15 14:06 | PC.NURSE ---
daughter wanted to reclarify home medication, SSI novolog high dose, lantus daughter unsure of units, lipitor 10 mg hs, zoloft 50 mg daily , and lisinopril 5 mg daily, updated home medication list per daughter request.
--- NOTE | 2022-03-15 14:09 | PC.NURSE ---
daughter reported pt has difficulty swallowing, bedside speech swallowing eval and tx ordered.
--- NOTE | 2022-03-15 14:42 | PM.IMPN ---
Progress Note: A&P Assessment and Plan (1) Acute alteration in mental status: Code(s): R41.82 - Altered mental status, unspecified Status: Acute Assessment and Plan: Patient has no neurological deficits at this time. Her ammonia level is within normal limits. Unsure if altered mental status is secondary to fall and rhabdomyolysis. At this point time will live early hydrate patient and monitor CK as well as renal function very closely. 03/14/2022 interval history: patient is 71-year-old female a resident of nursing patient apparently fell in the bathroom and was found, patient still quite confused unable to provide detailed review of symptom, her daughter is present in the room suspect patient was in the floor for overnight possibly longer, also patient fell while sitting on walker, patient is found to have significantly elevated liver function CT scan of the abdomen showed Cirrhosis with portal hypertension. Poorly visualized significantly narrowed portal veins and chronic thrombosis/decreased flow. Bladder wall thickening as can be seen with cystitis in the appropriate clinical context. patient also had macrocytic anemia suggesting liver cirrhosis etiology uncertain will do acute hepatitis panel to rule out infection and patient is seen GI and further recommendation to follow up. patient is also found to have rhabdomyolysis upon arrival CK level were elevated >16,000 most likely secondary to fall and being on the floor for overnight patient is being gently hydrated and CK levels are trending down will continue to monitor once clinically stable will have a PT OT evaluate the patient. 03/15/2022 interval history: patient is 71-year-old female a resident of long term patient apparently fell in the bathroom and was found, patient was quite confused was unable to provide detailed review of symptom, her daughter was present in the room suspect patient was in the floor for overnight possibly longer, also patient fell while sitting on walker, patient was found to have significantly elevated liver function, CT scan of the abdomen showed Cirrhosis with portal hypertension. Poorly visualized significantly narrowed portal veins and chronic thrombosis/decreased flow. Bladder wall thickening as can be seen with cystitis in the appropriate clinical context. patient also had macrocytic anemia suggesting liver cirrhosis etiology uncertain will do acute hepatitis panel to rule out infection which is negative for Hepatitis B and C and patient is seen GI suspect most likely symptoms are stemming from rhabdomyolysis patient is being gently hydrated, and further recommendation to follow up. patient is also found to have rhabdomyolysis upon arrival CK level were elevated >16,000 most likely secondary to fall and being on the floor for overnight patient is being gently hydrated and CK levels are trending down 7535, patient daughter is present in the room and give her updates, will continue to monitor, will have a PT OT evaluate the patien, patient will benefit going to acute rehab upon discharge. . (2) Elevated liver enzymes: Code(s): R74.8 - Abnormal levels of other serum enzymes Status: Acute Assessment and Plan: Patient has a history of elevated liver enzymes and did see hepatology in the past. Patient's daughters states that no etiology was found for her elevated liver enzymes. Gastroenterology has been consult and do appreciate further recommendations. Will avoid any hepatotoxic agents such as Tylenol. (3) Rhabdomyolysis: Code(s): M62.82 - Rhabdomyolysis Status: Acute Assessment and Plan: Patient is unsure when she fell, but it does appear since her CKs greater than 16,000 that was well over 24 hours ago. At this point time will live early hydrate patient and monitor kidney function as well as CK closely. Subjective Date/time seen: 03/15/22 14:42 03/15/2022 interval history: patient is 71-year-old female a lisbeth
--- NOTE | 2022-03-15 14:52 | PC.NURSE ---
speech evaluated this shift, modified ordered for tomorrow with Klaudia.
--- NOTE | 2022-03-15 15:11 | PCSTNOTE ---
Please refer to the Bedside Swallow Evaluation in the EMR. Please note, silent aspiration cannot be ruled out at bedside.
[2022-03-15 16:33] LABS: Glucose Point of Care 149 mg/dl (65-105)
[2022-03-15 22:00] VITALS: BP 129/45; PULSE 81; RESP 18; TEMP 36.6; O2SAT 96
[2022-03-15 22:25] VITALS: O2SAT 96
[2022-03-16 00:11] LABS: Glucose Point of Care 136 mg/dl (65-105)
[2022-03-16 05:34] VITALS: BP 122/45; PULSE 72; RESP 18; TEMP 36.5; O2SAT 97
[2022-03-16 07:05] LABS: Alanine Aminotransferase 165 U/L (6-35); Albumin Level 2.2 g/dL (3.5-5.1); Alkaline Phosphatase 138 U/L (38-126); Anion Gap 5 mmol/L (8-16); Aspartate Amino Transferase 477 U/L (14-36); Bilirubin,Total 1.9 mg/dL (0.2-1.3); Blood Urea Nitrogen 21 mg/dL (7-17); Calcium 7.5 mg/dL (8.4-10.2); Carbon Dioxide 17 mmol/L (22-30); Chloride 114 mmol/L (98-107); Estimated CRCL calculation 69 ml/min; Estimated Glomerular Filt Rate > 60; Glucose 95 mg/dL (65-110); Potassium 4.2 mmol/L (3.4-5.0); Sodium 136 mmol/L (137-145)
[2022-03-16 07:24] LABS: Creatine Kinase 3991 U/L (30-135)
[2022-03-16 08:31] LABS: Glucose Point of Care 99 mg/dl (65-105)
[2022-03-16] MEDS: SODIUM CHLORIDE 0.9% IV 1,000 ML 125 ML IV CONT ×2 (09:00→16:25)
[2022-03-16] MEDS: TOLNAFTATE 1% POWDER 45 GM BTL 1 APPLIC TOPICAL ×2 (09:00→20:52)
[2022-03-16] MEDS: ENOXAPARIN 40 MG/0.4 ML SYRINGE SUB-Q (09:00)
[2022-03-16] MEDS: ACETAMINOPHEN 325 MG TABLET 650 MG PO (09:00)
--- NOTE | 2022-03-16 11:22 | PHAR ---
PATIENT LABS FOR [facility] WERE NOT ORDERED 03-15-22-OR 03-16-22. dR. SHANNON NOTIFIED AND HE IS GOING TO ORDER STAT LABS PATIENT IS ON [facility].
[2022-03-16 11:30] LABS: Hematocrit 30.9 % (37.0-47.0); Hemoglobin 9.9 g/dL (12.0-15.0); Mean Corpuscular Hemoglobin 33.1 pg (26-34); Mean Corpuscular Volume 103.3 fl (80-100); Mean Platelet Volume 12.1 fl (7.4-10.4); Platelet Count Result 82 k/mm3 (150-375); Red Blood Count 2.99 M/mm3 (4.2-5.4); Red Cell Distribution Width 14.6 % (11.5-14.5); White Blood Count 7.2 K/mm3 (4.5-10.0)
[2022-03-16 11:55] LABS: Glucose Point of Care 165 mg/dl (65-105)
[2022-03-16 14:00] VITALS: BP 114/33; PULSE 77; RESP 16; TEMP 36; O2SAT 97
[2022-03-16 16:45] LABS: Glucose Point of Care 145 mg/dl (65-105)
[2022-03-16 20:29] LABS: Glucose Point of Care 156 mg/dl (65-105)
[2022-03-16 21:51] VITALS: BP 128/50; PULSE 78; RESP 16; TEMP 36.2; O2SAT 97
[2022-03-16 22:08] VITALS: O2SAT 97
[2022-03-17 05:22] VITALS: BP 144/37; PULSE 75; RESP 16; TEMP 36.1; O2SAT 95
[2022-03-17 07:51] LABS: Hematocrit 31.8 % (37.0-47.0); Immature Platelet Fraction Pct 3.7 % (0.9-11.2); Mean Corpuscular HGB Conc 31.4 g/dl (32-36); Mean Corpuscular Hemoglobin 32.4 pg (26-34); Mean Corpuscular Volume 102.9 fl (80-100); Platelet Count Result 83 k/mm3 (150-375); Red Blood Count 3.09 M/mm3 (4.2-5.4); Red Cell Distribution Width 14.8 % (11.5-14.5); White Blood Count 6.3 K/mm3 (4.5-10.0)
[2022-03-17 08:07] LABS: Alanine Aminotransferase 159 U/L (6-35); Albumin Level 2.1 g/dL (3.5-5.1); Alkaline Phosphatase 137 U/L (38-126); Anion Gap 3 mmol/L (8-16); Aspartate Amino Transferase 321 U/L (14-36); Bilirubin,Total 1.8 mg/dL (0.2-1.3); Blood Urea Nitrogen 13 mg/dL (7-17); Calcium 7.5 mg/dL (8.4-10.2); Carbon Dioxide 20 mmol/L (22-30); Chloride 117 mmol/L (98-107); Creatine Kinase 1457 U/L (30-135); Estimated CRCL calculation 79 ml/min; Estimated Glomerular Filt Rate > 60; Glucose 106 mg/dL (65-110); Potassium 3.9 mmol/L (3.4-5.0); Sodium 140 mmol/L (137-145)
[2022-03-17 08:14] LABS: Glucose Point of Care 104 mg/dl (65-105)
[2022-03-17] MEDS: SODIUM CHLORIDE 0.9% IV 1,000 ML 125 ML IV CONT ×3 (08:14→23:41)
[2022-03-17] MEDS: TOLNAFTATE 1% POWDER 45 GM BTL 1 APPLIC TOPICAL ×2 (08:15→20:00)
[2022-03-17 11:55] LABS: Glucose Point of Care 160 mg/dl (65-105)
[2022-03-17 14:00] VITALS: BP 124/68; PULSE 83; RESP 20; TEMP 36.3; O2SAT 95
[2022-03-17 16:34] LABS: Glucose Point of Care 184 mg/dl (65-105)
[2022-03-17 19:21] LABS: Ceruloplasmin 27 mg/dL (18-53)
[2022-03-17 20:41] LABS: Glucose Point of Care 200 mg/dl (65-105)
[2022-03-17 22:00] VITALS: BP 164/61; PULSE 69; RESP 18; TEMP 36.1; O2SAT 97
[2022-03-18 06:00] VITALS: BP 144/55; PULSE 75; RESP 18; TEMP 36.2; O2SAT 97
[2022-03-18 07:34] LABS: Glucose Point of Care 100 mg/dl (65-105)
[2022-03-18 08:07] LABS: Hematocrit 32.3 % (37.0-47.0); Hemoglobin 10.5 g/dL (12.0-15.0); Immature Platelet Fraction Pct 2.8 % (0.9-11.2); Mean Corpuscular HGB Conc 32.5 g/dl (32-36); Mean Corpuscular Volume 101.6 fl (80-100); Mean Platelet Volume 10.7 fl (7.4-10.4); Platelet Count Result 98 k/mm3 (150-375); Red Blood Count 3.18 M/mm3 (4.2-5.4); Red Cell Distribution Width 14.9 % (11.5-14.5); White Blood Count 7.5 K/mm3 (4.5-10.0)
[2022-03-18 08:11] LABS: Alanine Aminotransferase 149 U/L (6-35); Albumin Level 2.1 g/dL (3.5-5.1); Alkaline Phosphatase 143 U/L (38-126); Anion Gap 2 mmol/L (8-16); Aspartate Amino Transferase 236 U/L (14-36); Bilirubin,Total 1.9 mg/dL (0.2-1.3); Blood Urea Nitrogen 9 mg/dL (7-17); Calcium 7.8 mg/dL (8.4-10.2); Carbon Dioxide 24 mmol/L (22-30); Chloride 114 mmol/L (98-107); Creatine Kinase 840 U/L (30-135); Estimated CRCL calculation 79 ml/min; Estimated Glomerular Filt Rate > 60; Glucose 108 mg/dL (65-110); Potassium 4.2 mmol/L (3.4-5.0); Sodium 140 mmol/L (137-145)
[2022-03-18] MEDS: TOLNAFTATE 1% POWDER 45 GM BTL 1 APPLIC TOPICAL ×2 (08:18→22:13)
[2022-03-18 11:52] LABS: Glucose Point of Care 161 mg/dl (65-105)
--- NOTE | 2022-03-18 13:34 | PM.IMPN ---
Progress Note: A&P Assessment and Plan (1) Acute alteration in mental status: Code(s): R41.82 - Altered mental status, unspecified Status: Acute Assessment and Plan: Patient has no neurological deficits at this time. Her ammonia level is within normal limits. Unsure if altered mental status is secondary to fall and rhabdomyolysis. At this point time will live early hydrate patient and monitor CK as well as renal function very closely. 03/14/2022 interval history: patient is 71-year-old female a resident of nursing patient apparently fell in the bathroom and was found, patient still quite confused unable to provide detailed review of symptom, her daughter is present in the room suspect patient was in the floor for overnight possibly longer, also patient fell while sitting on walker, patient is found to have significantly elevated liver function CT scan of the abdomen showed Cirrhosis with portal hypertension. Poorly visualized significantly narrowed portal veins and chronic thrombosis/decreased flow. Bladder wall thickening as can be seen with cystitis in the appropriate clinical context. patient also had macrocytic anemia suggesting liver cirrhosis etiology uncertain will do acute hepatitis panel to rule out infection and patient is seen GI and further recommendation to follow up. patient is also found to have rhabdomyolysis upon arrival CK level were elevated >16,000 most likely secondary to fall and being on the floor for overnight patient is being gently hydrated and CK levels are trending down will continue to monitor once clinically stable will have a PT OT evaluate the patient. 03/15/2022 interval history: patient is 71-year-old female a resident of [facility] patient apparently fell in the bathroom and was found, patient was quite confused was unable to provide detailed review of symptom, her daughter was present in the room suspect patient was in the floor for overnight possibly longer, also patient fell while sitting on walker, patient was found to have significantly elevated liver function, CT scan of the abdomen showed Cirrhosis with portal hypertension. Poorly visualized significantly narrowed portal veins and chronic thrombosis/decreased flow. Bladder wall thickening as can be seen with cystitis in the appropriate clinical context. patient also had macrocytic anemia suggesting liver cirrhosis etiology uncertain will do acute hepatitis panel to rule out infection which is negative for Hepatitis B and C and patient is seen GI suspect most likely symptoms are stemming from rhabdomyolysis patient is being gently hydrated, and further recommendation to follow up. patient is also found to have rhabdomyolysis upon arrival CK level were elevated >16,000 most likely secondary to fall and being on the floor for overnight patient is being gently hydrated and CK levels are trending down 7535, patient daughter is present in the room and give her updates, will continue to monitor, will have a PT OT evaluate the patien, patient will benefit going to acute rehab upon discharge. 03/16/2022 interval history: patient is 71-year-old female a resident of [facility] patient apparently fell in the bathroom and was found, patient was quite confused was unable to provide detailed review of symptom, her daughter was present in the room suspect patient was in the floor for overnight possibly longer, also patient fell while sitting on walker, patient was found to have significantly elevated liver function, CT scan of the abdomen showed Cirrhosis with portal hypertension. Poorly visualized significantly narrowed portal veins and chronic thrombosis/decreased flow. Bladder wall thickening as can be seen with cystitis in the appropriate clinical context. patient also had macrocytic anemia suggesting liver cirrhosis etiology uncertain will do acute hepatitis panel to rule out infection which is negative for Hepatitis B and C and patient is seen GI suspect most like
[2022-03-18 14:00] VITALS: BP 130/52; PULSE 83; RESP 16; TEMP 36.9; O2SAT 96
[2022-03-18] MEDS: SODIUM CHLORIDE 0.9% IV 1,000 ML 125 ML IV CONT (15:26)
[2022-03-18 16:51] LABS: Glucose Point of Care 174 mg/dl (65-105)
[2022-03-18 21:03] LABS: Glucose Point of Care 151 mg/dl (65-105)
[2022-03-18 22:00] VITALS: BP 147/65; PULSE 88; RESP 18; TEMP 36.5; O2SAT 99
[2022-03-19 06:00] VITALS: BP 141/58; PULSE 79; RESP 20; TEMP 36.7; O2SAT 96
[2022-03-19 06:41] LABS: Hematocrit 31.3 % (37.0-47.0); Hemoglobin 10.1 g/dL (12.0-15.0); Immature Platelet Fraction Pct 2.7 % (0.9-11.2); Mean Corpuscular HGB Conc 32.3 g/dl (32-36); Mean Corpuscular Hemoglobin 32.8 pg (26-34); Mean Corpuscular Volume 101.6 fl (80-100); Mean Platelet Volume 10.2 fl (7.4-10.4); Platelet Count Result 87 k/mm3 (150-375); Red Blood Count 3.08 M/mm3 (4.2-5.4); Red Cell Distribution Width 15.3 % (11.5-14.5); White Blood Count 6.8 K/mm3 (4.5-10.0)
[2022-03-19 06:47] LABS: Alanine Aminotransferase 129 U/L (6-35); Albumin Level 2.1 g/dL (3.5-5.1); Alkaline Phosphatase 142 U/L (38-126); Anion Gap 0 mmol/L (8-16); Aspartate Amino Transferase 175 U/L (14-36); Bilirubin,Total 1.7 mg/dL (0.2-1.3); Blood Urea Nitrogen 8 mg/dL (7-17); Calcium 7.9 mg/dL (8.4-10.2); Carbon Dioxide 24 mmol/L (22-30); Chloride 114 mmol/L (98-107); Creatine Kinase 480 U/L (30-135); Estimated CRCL calculation 79 ml/min; Estimated Glomerular Filt Rate > 60; Glucose 115 mg/dL (65-110); Potassium 4.1 mmol/L (3.4-5.0); Sodium 138 mmol/L (137-145)
[2022-03-19 07:35] LABS: Glucose Point of Care 118 mg/dl (65-105)
[2022-03-19] MEDS: TOLNAFTATE 1% POWDER 45 GM BTL 1 APPLIC TOPICAL (08:51)
[2022-03-19] MEDS: ENOXAPARIN 40 MG/0.4 ML SYRINGE SUB-Q (08:51)
[2022-03-19] MEDS: ACETAMINOPHEN 325 MG TABLET 650 MG PO (08:52)
[2022-03-19 11:31] LABS: Glucose Point of Care 169 mg/dl (65-105)
--- NOTE | 2022-03-19 12:24 | PM.DS ---
DS: Admitting Diagnosis Discharge Date 03/19/2022 Admitting Diagnosis Altered mental status DS: Discharge Diagnosis Discharge Diagnosis (1) Acute alteration in mental status: Code(s): R41.82 - Altered mental status, unspecified Status: Acute Assessment and Plan: Patient has no neurological deficits at this time. Her ammonia level is within normal limits. Unsure if altered mental status is secondary to fall and rhabdomyolysis. At this point time will live early hydrate patient and monitor CK as well as renal function very closely. 03/14/2022 interval history: patient is 71-year-old female a resident of nursing patient apparently fell in the bathroom and was found, patient still quite confused unable to provide detailed review of symptom, her daughter is present in the room suspect patient was in the floor for overnight possibly longer, also patient fell while sitting on walker, patient is found to have significantly elevated liver function CT scan of the abdomen showed Cirrhosis with portal hypertension. Poorly visualized significantly narrowed portal veins and chronic thrombosis/decreased flow. Bladder wall thickening as can be seen with cystitis in the appropriate clinical context. patient also had macrocytic anemia suggesting liver cirrhosis etiology uncertain will do acute hepatitis panel to rule out infection and patient is seen GI and further recommendation to follow up. patient is also found to have rhabdomyolysis upon arrival CK level were elevated >16,000 most likely secondary to fall and being on the floor for overnight patient is being gently hydrated and CK levels are trending down will continue to monitor once clinically stable will have a PT OT evaluate the patient. 03/15/2022 interval history: patient is 71-year-old female a resident of group home patient apparently fell in the bathroom and was found, patient was quite confused was unable to provide detailed review of symptom, her daughter was present in the room suspect patient was in the floor for overnight possibly longer, also patient fell while sitting on walker, patient was found to have significantly elevated liver function, CT scan of the abdomen showed Cirrhosis with portal hypertension. Poorly visualized significantly narrowed portal veins and chronic thrombosis/decreased flow. Bladder wall thickening as can be seen with cystitis in the appropriate clinical context. patient also had macrocytic anemia suggesting liver cirrhosis etiology uncertain will do acute hepatitis panel to rule out infection which is negative for Hepatitis B and C and patient is seen GI suspect most likely symptoms are stemming from rhabdomyolysis patient is being gently hydrated, and further recommendation to follow up. patient is also found to have rhabdomyolysis upon arrival CK level were elevated >16,000 most likely secondary to fall and being on the floor for overnight patient is being gently hydrated and CK levels are trending down [id number], patient daughter is present in the room and give her updates, will continue to monitor, will have a PT OT evaluate the patien, patient will benefit going to acute rehab upon discharge. 03/16/2022 interval history: patient is 71-year-old female a resident of group home patient apparently fell in the bathroom and was found, patient was quite confused was unable to provide detailed review of symptom, her daughter was present in the room suspect patient was in the floor for overnight possibly longer, also patient fell while sitting on walker, patient was found to have significantly elevated liver function, CT scan of the abdomen showed Cirrhosis with portal hypertension. Poorly visualized significantly narrowed portal veins and chronic thrombosis/decreased flow. Bladder wall thickening as can be seen with cystitis in the appropriate clinical context. patient also had macrocytic anemia suggesting liver cirrhosis etiology uncertain will do acute hepatitis pane
[2022-03-19 13:10] LABS: EDCOVIDSCREEN Negative (Negative)
--- NOTE | 2022-03-19 13:29 | PCNFU ---
Nutrition Follow-Up Complete: Suboptimal po intake related to reduced appetite as evidenced by pt report Goal:PO intake to be 50% or greater most meals Pt is currently meeting goal. Continue with same goal Pt current nutrition is diabetic, glucerna shakes BID. Nutrition recommendation: continue with current plan of care. Last recorded weight is 92.5 kg - stable at this time. Bowel Motility: +BM5/16 Labs Reviewed:Hgb:10.5, HCT:31.3, Alb:2.1, CR: 0.6 Meds Noted:lovenox Skin: WNL Additional Notes: Pt continues on a diabetic diet, reports improved intake. Charted intake is 100% most all meals. Pt also consuming glucerna shakes. Glucose: 174,151,118. No concerns noted. Possible D/C today. Monitor intake, wt, labs. Follow up in 7 days.
[2022-03-19 16:51] LABS: Anti Nuclear Antibody Titer >=1:1280 (Negative)
[2022-03-20 21:29] LABS: Mitochondrial (M2) Ab (IgG) <=20.0 U (<=20.0)
== END 2022-03-19 13:50 | DRG 565 ==
LOC: ANHED 18:48 → ANH3MEDSUR 19:49
PROVIDERS: Internal Medicine Gastroenterology; Nurse Practitioner Adult Health; Admitting Provider Family Medicine; Emergency Provider Emergency Medicine; PCP Family Medicine; Visit Provider Family Medicine
DX: T79.6XXA Traumatic ischemia of muscle, initial encounter (principal); K76.6 Portal hypertension; F33.9 Major depressive disorder, recurrent, unspecified; W19.XXXA Unspecified fall, initial encounter; R41.82 Altered mental status, unspecified; D53.9 Nutritional anemia, unspecified; K74.60 Unspecified cirrhosis of liver; I25.10 Atherosclerotic heart disease of native coronary artery without angina pectoris; E11.9 Type 2 diabetes mellitus without complications; I67.1 Cerebral aneurysm, nonruptured; I10 Essential (primary) hypertension; R26.89 Other abnormalities of gait and mobility; I69.398 Other sequelae of cerebral infarction; Z20.822 Contact with and (suspected) exposure to COVID-19; Z95.1 Presence of aortocoronary bypass graft; Z90.49 Acquired absence of other specified parts of digestive tract; Z90.710 Acquired absence of both cervix and uterus; Z87.891 Personal history of nicotine dependence; E66.9 Obesity, unspecified; Z68.35 Body mass index [BMI] 35.0-35.9, adult
CPT/HCPCS: 36415; 51701; 70450; 71046; 74177; 80053; 80074; 80307; 81001; 82010; 82104; 82140; 82247; 82248; 82390; 82550; 82728; 82948; 83520; 83605; 85025; 85027; 85055; 85610; 85730; 86038; 86039; 87426; 92610; 93005; 96360; 96361; 97110; 97116; 97161; 97166; 97530; 97535; 99285; A9270; C9803; G0378; J1650; J7030; Q9967; U0003; U0005

== ENCOUNTER 2022-06-05 16:10 | Outpatient (CLI) | payer MEDICARE, SELFPAY ==
[2022-06-05 16:33] LABS: Basophils Absolute Auto 0.1 K/mm3 (0.0-0.1); Basophils Percent Auto 0.8 % (0.2-1.2); Eosinophils Absolute Auto 0.2 K/mm3 (0-0.3); Eosinophils Percent Auto 3.8 % (0-4.4); Hematocrit 28.9 % (37.0-47.0); Hemoglobin 9.2 g/dL (12.0-15.0); Immature Granulocyte Absolute 0.02 K/mm3 (0.00-0.031); Immature Granulocyte Percent A 0.3 % (0-0.5); Immature Platelet Fraction Pct 3.6 % (0.9-11.2); Lymphocytes Absolute Auto 1.51 K/mm3 (0.9-3.2); Lymphocytes Percent Auto 24.8 % (18.3-44.2); Mean Corpuscular HGB Conc 31.8 g/dl (32-36); Mean Corpuscular Volume 97.3 fl (80-100); Mean Platelet Volume 11.3 fl (7.4-10.4); Monocytes Absolute Auto 0.8 K/mm3 (0.1-0.6); Monocytes Percent Auto 13.3 % (2.6-8.5); Neutrophils Absolute Auto 3.5 K/mm3 (1.3-6.7); Platelet Count Result 87 k/mm3 (150-375); Red Blood Count 2.97 M/mm3 (4.2-5.4); Red Cell Distribution Width 16.6 % (11.5-14.5); White Blood Count 6.1 K/mm3 (4.5-10.0)
[2022-06-05 16:41] LABS: Alanine Aminotransferase 49 U/L (6-35); Albumin Level 2.7 g/dL (3.5-5.1); Alkaline Phosphatase 156 U/L (38-126); Anion Gap 8 mmol/L (8-16); Aspartate Amino Transferase 80 U/L (14-36); Bilirubin,Total 1.3 mg/dL (0.2-1.3); Blood Urea Nitrogen 18 mg/dL (7-17); Calcium 8.8 mg/dL (8.4-10.2); Carbon Dioxide 25 mmol/L (22-30); Chloride 104 mmol/L (98-107); Estimated Glomerular Filt Rate > 60; Glucose 139 mg/dL (65-110); Potassium 3.8 mmol/L (3.4-5.0); Sodium 137 mmol/L (137-145)
[2022-06-05 16:50] LABS: NT Pro B Type Natriuretic Pept 433 pg/mL (5-100)
== END 2022-06-05 16:11 | disposition home or self-care (01) ==
LOC: ANHLAB 16:19
PROVIDERS: PCP Family Medicine; Visit Provider Nurse Practitioner Gerontology
DX: K74.60 Unspecified cirrhosis of liver (principal); I25.10 Atherosclerotic heart disease of native coronary artery without angina pectoris; I10 Essential (primary) hypertension; E11.65 Type 2 diabetes mellitus with hyperglycemia; I50.30 Unspecified diastolic (congestive) heart failure
CPT/HCPCS: 36415; 80053; 83880; 84443; 85025; 85055

== ENCOUNTER 2022-07-26 11:38 | Outpatient (CLI) | payer MEDICARE, SELFPAY ==
[2022-07-26 12:01] LABS: Hematocrit 27.7 % (37.0-47.0); Hemoglobin 8.9 g/dL (12.0-15.0)
[2022-07-26 12:10] LABS: Alanine Aminotransferase 43 U/L (6-35); Albumin Level 2.5 g/dL (3.5-5.1); Alkaline Phosphatase 138 U/L (38-126); Anion Gap 6 mmol/L (8-16); Aspartate Amino Transferase 100 U/L (14-36); Bilirubin,Total 1.6 mg/dL (0.2-1.3); Blood Urea Nitrogen 14 mg/dL (7-17); Calcium 8.5 mg/dL (8.4-10.2); Carbon Dioxide 23 mmol/L (22-30); Chloride 107 mmol/L (98-107); Estimated Glomerular Filt Rate > 60; Glucose 130 mg/dL (65-110); Potassium 4.4 mmol/L (3.4-5.0); Sodium 136 mmol/L (137-145)
[2022-07-26 12:20] LABS: NT Pro B Type Natriuretic Pept 892 pg/mL (5-100)
[2022-07-26 15:36] LABS: Ammonia 18 umol/L (9-30)
== END 2022-07-26 11:39 | disposition home or self-care (01) ==
LOC: ANHLAB 11:39
PROVIDERS: PCP Family Medicine; Visit Provider Family Medicine
DX: K74.60 Unspecified cirrhosis of liver (principal); I50.30 Unspecified diastolic (congestive) heart failure; R53.83 Other fatigue
CPT/HCPCS: 36415; 80053; 82140; 83880; 85014; 85018